=== PATIENT | female | born 1960 | race Caucasian/White ===

== ENCOUNTER 2019-03-12 13:30 | Outpatient (REF) | payer MEDICAID, SELFPAY ==
[2019-03-12 22:49] LABS: Anion Gap 11.5 mmol/L (3-11); BUN 12 mg/dL (7-18); CO2 25.5 mmol/L (21.0-32.0); CREATININE 0.72 mg/dL (0.55-1.02); Calcium 8.8 mg/dL (8.5-10.1); Chloride 104 mmol/L (98-107); Glucose 93 mg/dL (74-106); Sodium 141 mmol/L (136-145)
== END 2019-03-12 13:50 ==
LOC: NCHCN 13:30
PROVIDERS: PCP Family Medicine; Visit Provider Registered Nurse
DX: I10 Essential (primary) hypertension (principal)
CPT/HCPCS: 80048

== ENCOUNTER 2019-03-27 11:15 | Outpatient (REF) | payer MEDICAID, SELFPAY ==
[2019-03-27 21:17] LABS: Anion Gap 9.1 mmol/L (3-11); BUN 16 mg/dL (7-18); CO2 28.9 mmol/L (21.0-32.0); CREATININE 0.92 mg/dL (0.55-1.02); Calcium 8.9 mg/dL (8.5-10.1); Chloride 104 mmol/L (98-107); Glucose 84 mg/dL (74-106); Potassium 3.7 mmol/L (3.5-5.1); Sodium 142 mmol/L (136-145)
== END 2019-03-27 11:35 ==
LOC: NCHCN 11:15
PROVIDERS: PCP Family Medicine; Visit Provider Registered Nurse
DX: I10 Essential (primary) hypertension (principal)
CPT/HCPCS: 80048

== ENCOUNTER 2020-08-24 11:26 | Outpatient (REF) | payer MEDICAID, SELFPAY ==
[2020-08-24 15:37] LABS: Anion Gap 10.3 mmol/L (3-11); BUN 12 mg/dL (7-18); CO2 27.7 mmol/L (21.0-32.0); CREATININE 0.7 mg/dL (0.55-1.02); Calcium 8.9 mg/dL (8.5-10.1); Chloride 104 mmol/L (98-107); Glucose 89 mg/dL (74-106); Potassium 4.4 mmol/L (3.5-5.1); Sodium 142 mmol/L (136-145)
[2020-08-24 16:01] LABS: Calculated LDL 142 mg/dL (<100); Cholesterol 236 mg/dL (<200); HDL Cholesterol 76 mg/dL (40-60); Triglyceride 92 mg/dL (<150)
== END 2020-08-24 11:27 | disposition home or self-care (01) ==
LOC: NCHCN 11:26
PROVIDERS: PCP Family Medicine; Visit Provider Family Medicine
DX: I10 Essential (primary) hypertension (principal); R60.0 Localized edema
CPT/HCPCS: 80048; 80061

== ENCOUNTER 2021-08-23 17:16 | Outpatient (REF) | payer MEDICAID, SELFPAY ==
[2021-08-23 14:58] LABS: ALT 19 U/L (14-59); Anion Gap 5.6 mmol/L (3-11); BUN 15 mg/dL (7-18); CO2 28.4 mmol/L (21.0-32.0); CREATININE 0.7 mg/dL (0.55-1.02); Calcium 8.6 mg/dL (8.5-10.1); Calculated LDL 106 mg/dL (<100); Chloride 105 mmol/L (98-107); Cholesterol 194 mg/dL (<200); Glucose 96 mg/dL (74-106); HDL Cholesterol 74 mg/dL (40-60); Potassium 4.5 mmol/L (3.5-5.1); Sodium 139 mmol/L (136-145); Triglyceride 73 mg/dL (<150)
== END 2021-08-23 17:17 | disposition home or self-care (01) ==
LOC: NCHCN 17:16
PROVIDERS: PCP Family Medicine; Visit Provider Family Medicine
DX: E78.5 Hyperlipidemia, unspecified (principal); I10 Essential (primary) hypertension; E66.9 Obesity, unspecified
CPT/HCPCS: 80048; 80061; 84460

== ENCOUNTER 2022-09-05 10:16 | Outpatient (REF) | payer MEDICAID, SELFPAY ==
[2022-09-05 16:16] LABS: BUN 16 mg/dL (7-18); CREATININE 0.7 mg/dL (0.55-1.02); Calcium 8.7 mg/dL (8.5-10.1); Calculated LDL 106 mg/dL (<100); Chloride 103 mmol/L (98-107); Cholesterol 194 mg/dL (<200); Estimated GFR 98.34 (mL/min/1.73m2); Glucose 87 mg/dL (74-106); HDL Cholesterol 78 mg/dL (40-60); Sodium 140 mmol/L (136-145); Triglyceride 52 mg/dL (<150)
== END 2022-09-05 10:17 | disposition home or self-care (01) ==
LOC: NCHCN 10:16
PROVIDERS: PCP Family Medicine; Visit Provider Family Medicine
DX: E78.5 Hyperlipidemia, unspecified (principal); I10 Essential (primary) hypertension
CPT/HCPCS: 80048; 80061

== ENCOUNTER 2023-09-10 10:22 | Outpatient (REF) | payer MEDICAID, SELFPAY ==
[2023-09-10 14:56] LABS: Anion Gap 6.2 mmol/L (3-11); BUN 18 mg/dL (7-18); CO2 28.8 mmol/L (21.0-32.0); CREATININE 0.7 mg/dL (0.55-1.02); Calcium 9.2 mg/dL (8.5-10.1); Calculated LDL 107 mg/dL (<100); Chloride 104 mmol/L (98-107); Cholesterol 206 mg/dL (<200); Estimated GFR 97.72 (mL/min/1.73m2); Glucose 99 mg/dL (74-106); HDL Cholesterol 90 mg/dL (40-60); Sodium 139 mmol/L (136-145); Triglyceride 49 mg/dL (<150)
== END 2023-09-10 10:23 | disposition home or self-care (01) ==
LOC: NCHCN 10:22
PROVIDERS: PCP Family Medicine; Visit Provider Family Medicine
DX: I10 Essential (primary) hypertension (principal); E78.5 Hyperlipidemia, unspecified
CPT/HCPCS: 80048; 80061

== ENCOUNTER 2024-05-16 16:21 | Outpatient (REF) | payer MEDICAID, SELFPAY | END 2024-05-16 16:22 | disposition home or self-care (01) | LOC: NCHCN 16:21 | PROVIDERS: PCP Family Medicine; Visit Provider Internal Medicine | DX: R30.0 Dysuria (principal) | CPT/HCPCS: 87077; 87086; 87186 ==